=== PATIENT | female | born 1950 | race Caucasian/White ===

== ENCOUNTER → 2019-12-09 | Outpatient (CLI) | payer OTHER | LOC: LAB 12-07 13:43 | DX: Z20.828 Contact with and (suspected) exposure to other viral communicable diseases (principal) ==

== ENCOUNTER → 2020-03-24 | Outpatient (CLI) | payer MEDICARE | LOC: RAD 10:27 | DX: N18.9 Chronic kidney disease, unspecified (principal); Z90.5 Acquired absence of kidney ==

== ENCOUNTER → 2022-07-10 | Outpatient (CLI) | payer MEDICARE ==
[~2022-07-10] MED LIST: HCTZ 25MG25 MG PO
== END ==
LOC: RAD 10:43
DX: R91.8 Other nonspecific abnormal finding of lung field (principal); J98.11 Atelectasis

== ENCOUNTER → 2022-08-03 | Outpatient (CLI) | payer MEDICARE | LOC: RAD 12:38 | DX: N28.1 Cyst of kidney, acquired (principal); N13.30 Unspecified hydronephrosis; Z90.5 Acquired absence of kidney ==

== ENCOUNTER 2023-09-10 10:47 | Emergency (ER) | payer MEDICARE ==
[~2023-09-10] VITALS: Ht 160 cm; Wt 95.0 kg
[2023-09-10 11:05] LABS: BASO # 0.02 K/mm3 (0.02-0.10); EOS # 0.09 K/mm3 (0.04-0.40); EOS % 1.2 % (1.0-5.0); HEMATOCRIT 41.7 % (37.0-47.0); HEMOGLOBIN 13.4 g/dL (12.5-16.0); LYMPH# 1.94 K/mm3 (1.50-4.00); MEAN CELL VOLUME 98 fl (78-100); MEAN CORPUSCULAR HEMOGLOBIN 32 pg (27-31); MEAN CORPUSCULAR HGB CONC 32 g/dL (33-37); MONO # 0.66 K/mm3 (0.20-0.80); NEU # 4.89 K/mm3 (1.40-6.50); PLATELET COUNT 223 K/mm3 (130-400); RED BLOOD COUNT 4.25 M/mm3 (4.10-5.30); RED CELL DISTRIBUTION WIDTH 11.2 % (11.5-14.5); WHITE BLOOD COUNT 7.6 K/mm3 (4.8-10.8)
[2023-09-10] MEDS ORDERED: FUROSEMIDE40 MG PO (11:08)
[2023-09-10] MEDS ORDERED: VAZALORE81 MG PO (11:09)
[2023-09-10 11:13] LABS: ALBUMIN 3.8 g/dL (3.4-4.8)
[2023-09-10 11:14] LABS: CALCIUM 12.1 mg/dL (8.3-10.5)
[2023-09-10 11:16] LABS: TOTAL BILIRUBIN 0.3 mg/dL (0.2-1.2); TOTAL PROTEIN 7.4 g/dL (6.2-8.1)
[2023-09-10 11:29] LABS: TROPONIN-I 0.046 ng/mL (0.00-0.033)
[2023-09-10] MEDS ORDERED: Mag/Al Hydrox/Simeth Susp 30 ML CUP PO ONE (11:30)
[2023-09-10] MEDS ORDERED: Lidocaine 2% Viscous 15 ML UNIT DOSE CUP MM ONE (11:30)
[2023-09-10 13:03] LABS: PH-URINE 7.5 (5.0 - 8.0); URINE APPEARANCE CLEAR (CLEAR); URINE BILIRUBIN NEGATIVE (NEGATIVE); URINE BLOOD 1+ (NEGATIVE); URINE COLOR LIGHT YELLOW (YELLOW); URINE GLUCOSE 1+ (NEGATIVE); URINE KETONE NEGATIVE (NEGATIVE); URINE LEUKOCYTE ESTERASE NEGATIVE (NEGATIVE); URINE NITRATE NEGATIVE (NEGATIVE); URINE PROTEIN(semi-quant) 3+ (NEGATIVE)
[2023-09-10 14:51] VITALS: BP 176/100
== END 2023-09-10 14:40 | disposition short-term general hospital (02) ==
LOC: ED 10:47
PROVIDERS: Family Medicine; Physician Assistant
DX: R07.89 Other chest pain (principal); R79.89 Other specified abnormal findings of blood chemistry; R20.0 Anesthesia of skin; R10.10 Upper abdominal pain, unspecified; Z90.49 Acquired absence of other specified parts of digestive tract

== ENCOUNTER 2023-10-15 13:15 | Outpatient (RCR) | payer MEDICARE ==
[~2023-10-15 13:15] MED LIST changes: +FUROSEMIDE40 MG PO; +VAZALORE81 MG PO
== END 2023-10-22 | disposition home or self-care (01) ==
LOC: CARDREHAB
DX: Z48.812 Encounter for surgical aftercare following surgery on the circulatory system (principal); Z98.61 Coronary angioplasty status; I21.4 Non-ST elevation (NSTEMI) myocardial infarction